=== PATIENT | female | born 1965 | race Caucasian/White ===

== ENCOUNTER → 2020-07-17 | Outpatient (CLI) | payer OTHER ==
[~2020-07-17] MED LIST: CELEBREX200 MG PO; ELIQUIS2.5 MG PO; PERCOCET 7.5-31 EACH PO
[2020-07-17 09:17] LABS: HEMOGLOBIN 14.1 gm/dl (12.3-15.3); RED BLOOD COUNT 4.34 M/UL (4.00-5.10); WHITE BLOOD COUNT 8.8 K/UL (4.5-11.0)
[2020-07-17 09:23] LABS: BUN/CREATININE RATIO 28 (0-10)
== END ==
LOC: OPSV2 08:00 → EDSTATUS 08:00 → OPSV2 08:21
PROVIDERS: Orthopaedic Surgery
DX: Z01.818 Encounter for other preprocedural examination (principal); M17.11 Unilateral primary osteoarthritis, right knee
CPT/HCPCS: 36415; 80048; 81001; 85025; 87081; 93005

== ENCOUNTER → 2020-09-26 | Outpatient (CLI) | payer OTHER ==
[2020-09-26 08:45] LABS: HEMOGLOBIN 13.1 gm/dl (12.3-15.3); RED BLOOD COUNT 4.04 M/UL (4.00-5.10); WHITE BLOOD COUNT 6.6 K/UL (4.5-11.0)
[2020-09-26 09:16] LABS: BUN/CREATININE RATIO 16 (0-10)
== END ==
LOC: OPSV2 07:53 → EDSTATUS 08:00 → OPSV2 08:00
PROVIDERS: Orthopaedic Surgery
DX: Z01.818 Encounter for other preprocedural examination (principal); M17.11 Unilateral primary osteoarthritis, right knee
CPT/HCPCS: 36415; 80048; 81001; 85025; 93005

== ENCOUNTER → 2020-10-01 | Outpatient (CLI) | payer OTHER ==
[2020-10-01 15:37] LABS: BUN/CREATININE RATIO 11 (0-10)
== END ==
LOC: LAB 12:33
PROVIDERS: Orthopaedic Surgery
DX: Z01.812 Encounter for preprocedural laboratory examination (principal); M19.90 Unspecified osteoarthritis, unspecified site
CPT/HCPCS: 36415; 80048; 86850; 86900; 86901

== ENCOUNTER 2020-10-02 09:24 | Day surgery (SDC) | payer OTHER ==
[~2020-10-02] VITALS: Ht 165.1 cm; Wt 65.8 kg
[~2020-10-02 09:24] MED LIST changes: -ELIQUIS2.5 MG PO; -PERCOCET 7.5-31 EACH PO
[2020-10-02] MEDS ORDERED: PERCOCET 7.5-31 EACH PO (16:45)
[2020-10-03 03:20] LABS: HEMOGLOBIN 11.2 gm/dl (12.3-15.3); RED BLOOD COUNT 3.47 M/UL (4.00-5.10); WHITE BLOOD COUNT 10.8 K/UL (4.5-11.0)
[2020-10-03 03:45] LABS: BUN/CREATININE RATIO 16 (0-10)
--- NOTE | 2020-10-03 16:44 | NUR ---
I RECEIVED TRANSFER OF CARE FROM MARY MELO, PT CONDITIONS WERE CONSISTENT WITH SHIFT ASSESSMENT. PT REPORTS BEING IN PAIN AND STATES THAT HER PAIN MEDICATION WAS BEING HELD. I INSTRUCTED PT THAT SINCE HER MEDICATION IS CONSIDERED PRN THAT SHE HAS TO REQUEST THE MEDICATION, THIS MEDICATION CANNOT BE FREELY GIVEN TO THE PT. I EXPLAINED THE TIMES THAT THE PT CAN GET HER MEDICATION FOR PAIN. I ALSO EXPLAINED THAT SINCE THE PT REPORTS THAT HER IV IS BURNING THAT WHEN FLUIDS ARE RUNNING THAT ANOTHER IV CAN BE ACCESSED. PT CURRENTLY IS REFUSING TO HAVE ANOTHER IV PLACED. DR. EMANUEL AND DIMPLE, WERE MADE AWARE. PT VERBALIZED UNDERSTANDING OF INSTRUCTIONS. WILL CONTINUE TO MONITOR.
--- NOTE | 2020-10-04 03:37 | NUR ---
0330 I HEARD YELLING FROM THE PATIENT'S ROOM SO I WENT IN THERE TO CHECK ON HER. THE PATIENT STATED SHE WAS IN A LOT OF PAIN. I TOLD HER IT WASN'T TIME FOR HER PO PAIN MEDICATION AND SHE STATED SHE KNEW. THE PATIENT HAS NO IV ACCESS AND THE MD IS AWARE. I OFFERED TO CALL THE RESOURCE RN AND GET THE ULTRASOUND MACHINE UP HERE TO GET IV ACCESS SO SHE COULD HAVE HER IV PAIN MEDICATION. THE PATIENT STATED THAT SHE DID NOT WANT TO GO THROUGH THAT BECAUSE SHE WAS TOO HARD OF A STICK EVEN WITH A ULTRASOUND MACHINE. THE PATIENT STATED SHE WAS FINE WITH THE PO PAIN MEDICATION AND SHE WOULD WAIT UNTIL IT WAS DUE. I HELPED THE PATIENT PUT HER POLAR ICE BACK ON TO HELP EASE HER PAIN UNTIL HER MEDICINE WAS DUE AGAIN. NO FURTHER CONCERNS AT THIS TIME.
[2020-10-04 03:52] LABS: HEMOGLOBIN 10.7 gm/dl (12.3-15.3); RED BLOOD COUNT 3.37 M/UL (4.00-5.10)
[2020-10-04 04:03] LABS: BUN/CREATININE RATIO 13 (0-10)
[2020-10-04] MEDS ORDERED: ELIQUIS2.5 MG PO (11:07)
== END 2020-10-04 14:20 | disposition home or self-care (01) ==
LOC: OR 09:24 → EDSTATUS 13:15 → M/S 17:32 → OR 10-04 14:20
PROVIDERS: Orthopaedic Surgery
PROC: 3E0T3BZ Introduction of Anesthetic Agent into Peripheral Nerves and Plexi, Percutaneous Approach (ICD-10-PCS; 2020-10-02)
PROC: 0SRC0J9 Replacement of Right Knee Joint with Synthetic Substitute, Cemented, Open Approach (ICD-10-PCS; principal; 2020-10-02 13:15)
DX: M17.11 Unilateral primary osteoarthritis, right knee (principal); M06.9 Rheumatoid arthritis, unspecified; M21.061 Valgus deformity, not elsewhere classified, right knee; G89.18 Other acute postprocedural pain; J44.9 Chronic obstructive pulmonary disease, unspecified; F17.210 Nicotine dependence, cigarettes, uncomplicated; Z79.899 Other long term (current) drug therapy; Z20.822 Contact with and (suspected) exposure to COVID-19
CPT/HCPCS: 36415; 73560; 80048; 80307; 85025; 97116-GP-CQ; 97161; 97166; 97535; C1776; J0171; J0690; J1100; J2001; J2250; J2310; J2405; J2550; J2704; J2795; J3010; J3370; J7120